=== PATIENT | female | born 1980 | race Caucasian/White ===

== ENCOUNTER 2022-01-22 10:00 | Inpatient (IN) | payer OTHER ==
[2022-01-22] MEDS ORDERED: DICYCLOMINE HCL 10 MG CAPSULE PO PRN (10:23)
[2022-01-22] MEDS ORDERED: BISMUTH SUBSALICYLATE 524 MG/30 ML PO PRN (10:23)
[2022-01-22] MEDS ORDERED: MAGNESIUM HYDROX 2400MG/30ML ORAL SUSPENSION 30 ML CUP PO PRN (10:23)
[2022-01-22] MEDS ORDERED: MAG HYDROX/AL HYDROX/SIMETH 30 ML UNIT-DOSE CUP PO PRN (10:23)
[2022-01-22] MEDS ORDERED: MAGNESIUM CITRATE 300 ML BOTTLE PO PRN (10:23)
[2022-01-22] MEDS ORDERED: IBUPROFEN 400 MG TABLET (FP) PO PRN (10:23)
[2022-01-22] MEDS ORDERED: ONDANSETRON *ODT* 4 MG TABLET SL PRN (10:23)
[2022-01-22] MEDS ORDERED: LORazepam 1 MG TABLET PO PRN (10:23)
[2022-01-22] MEDS ORDERED: BENZOCAINE/MENTHOL (CHLORASEPTIC ) LOZENGE MM PRN (10:23)
[2022-01-22] MEDS ORDERED: LOPERAMIDE HCL 2 MG CAPSULE PO PRN (10:23)
[2022-01-22] MEDS ORDERED: NALOXONE HCL (KLOXXADO) 8 MG SPRAY NS PRN (10:23)
[2022-01-22] MEDS ORDERED: ACETAMINOPHEN 325 MG TABLET (FP) PO PRN ×2 (10:23)
[2022-01-22 11:01] VITALS: BMI 36.1
[2022-01-22] MEDS ORDERED: PATIENT'S OWN MEDICATION (NON-FORMULARY) (Evolocumab [Repatha Sureclick] 140 MG/ML Pen.Inj SQ SCH (11:30)
[2022-01-22] MEDS ORDERED: PATIENT'S OWN MEDICATION (NON-FORMULARY) (Dulaglutide [Trulicity] 0.75 MG/0.5 ML Pen.Injct SQ SCH (11:30)
[2022-01-22] MEDS ORDERED: cloNIDine HCL 0.1 MG TABLET PO ONE (11:45)
[2022-01-22] MEDS: LORazepam 2 MG TABLET PO SCH ×3 (12:07→22:38)
[2022-01-22] MEDS: NICOTINE 14 MG/24 HOURS TOPICAL PATCH TD SCH (12:17)
[2022-01-22] MEDS: NICOTINE 10 MG CARTRIDGE (INHALER) IH PRN (12:27)
[2022-01-22 13:40] LABS: HEMATOCRIT 43.3 % (32.4-45.2); HEMOGLOBIN 14.3 GM/dL (10.7-15.3); MCH 30.8 pg (25.7-33.7); MCHC 32.9 g/dl (32.0-36.0); MEAN CELL VOLUME 93.4 fl (80-96); MEAN PLT VOLUME 10.1 fl (7.5-11.1); PLATELET COUNT 178 10^3/uL (134-434); RBC 4.64 M/mm3 (3.60-5.2); RDW 13.5 % (11.6-15.6); WHITE BLOOD COUNT 6.6 K/mm3 (4.0-10.0)
[2022-01-22] MEDS: hydrOXYzine PAMOATE 25 MG CAPSULE (FP) PO SCH ×3 (13:47→22:38)
[2022-01-22] MEDS: CLOPIDOGREL BISULFATE 75 MG TABLET (FP) PO SCH (13:47)
[2022-01-22] MEDS: ESCITALOPRAM OXALATE 10 MG TABLET PO SCH (13:48)
[2022-01-22 13:52] LABS: BLOOD UREA NITROGEN 7.9 mg/dL (7-18)
[2022-01-22 13:53] LABS: ALBUMIN 3.7 g/dl (3.4-5.0)
[2022-01-22 13:55] LABS: BILIRUBIN,TOTAL 0.8 mg/dL (0.2-1); CALCIUM 9.3 mg/dL (8.5-10.1); TOT PROT 8.2 g/dl (6.4-8.2)
[2022-01-22 13:56] LABS: CREATININE 0.7 mg/dL (0.55-1.3)
[2022-01-22] MEDS: METHOCARBAMOL 500 MG TABLET PO PRN (17:57)
[2022-01-22] MEDS ORDERED: MELATONIN 5 MG TABLETS PO SCH (22:00)
[2022-01-22] MEDS: ATORVASTATIN CA 80 MG TABLET (FP) PO SCH (22:38)
[2022-01-22] MEDS: MELATONIN 5 MG TABLETS PO SCH (22:38)
[2022-01-22] MEDS: THIAMINE HCL 100 MG TABLET (FP) PO SCH (22:38)
[2022-01-23] MEDS: LORazepam 2 MG TABLET PO SCH ×4 (06:35→22:01)
[2022-01-23] MEDS: LEVOTHYROXINE NA 25 MCG TABLET (FP) PO SCH (06:35)
[2022-01-23] MEDS: hydrOXYzine PAMOATE 25 MG CAPSULE (FP) PO SCH ×5 (06:36→22:01)
[2022-01-23] MEDS ORDERED: glipiZIDE 5 MG TABLET (FP) ONE (06:41)
[2022-01-23] MEDS: glipiZIDE 10 MG TABLET (FP) PO SCH (06:57)
[2022-01-23] MEDS ORDERED: ALBUTEROL SO4 HFA INHALER IH PRN (09:17)
[2022-01-23] MEDS ORDERED: ALBUTEROL SO4 0.083% IH SOL 2.5 MG/3 ML VIAL.NEB. NEB PRN (09:18)
[2022-01-23] MEDS: FERROUS SO4 325 MG TABLET (FP) PO SCH (10:35)
[2022-01-23] MEDS: CLOPIDOGREL BISULFATE 75 MG TABLET (FP) PO SCH (10:35)
[2022-01-23] MEDS: NICOTINE 14 MG/24 HOURS TOPICAL PATCH TD SCH (10:35)
[2022-01-23] MEDS: ESCITALOPRAM OXALATE 10 MG TABLET PO SCH (10:35)
[2022-01-23] MEDS: DROSPIRENONE 4 MG PO SCH (10:36)
[2022-01-23] MEDS: PRENATAL VITAMINS W/ FOLIC ACID TABLET (FP) PO SCH (10:36)
[2022-01-23] MEDS: METHOCARBAMOL 500 MG TABLET PO PRN (18:32)
[2022-01-23] MEDS: THIAMINE HCL 100 MG TABLET (FP) PO SCH (22:01)
[2022-01-23] MEDS: ATORVASTATIN CA 80 MG TABLET (FP) PO SCH (22:01)
[2022-01-23] MEDS: MELATONIN 5 MG TABLETS PO SCH (22:01)
[2022-01-24] MEDS: glipiZIDE 10 MG TABLET (FP) PO SCH (06:52)
[2022-01-24] MEDS: LORazepam 1 MG TABLET PO SCH ×4 (06:52→22:06)
[2022-01-24] MEDS: LEVOTHYROXINE NA 25 MCG TABLET (FP) PO SCH (06:52)
[2022-01-24] MEDS: hydrOXYzine PAMOATE 25 MG CAPSULE (FP) PO SCH ×5 (06:53→22:05)
[2022-01-24] MEDS: DROSPIRENONE 4 MG PO SCH (10:42)
[2022-01-24] MEDS: ESCITALOPRAM OXALATE 10 MG TABLET PO SCH (10:43)
[2022-01-24] MEDS: FERROUS SO4 325 MG TABLET (FP) PO SCH (10:43)
[2022-01-24] MEDS: NICOTINE 14 MG/24 HOURS TOPICAL PATCH TD SCH (11:19)
[2022-01-24] MEDS: PRENATAL VITAMINS W/ FOLIC ACID TABLET (FP) PO SCH (11:19)
[2022-01-24] MEDS: CLOPIDOGREL BISULFATE 75 MG TABLET (FP) PO SCH (11:19)
[2022-01-24] MEDS: NICOTINE 10 MG CARTRIDGE (INHALER) IH PRN (11:20)
[2022-01-24 14:08] LABS: SARS-CoV-2 NAA Not Detected (Not Detected)
[2022-01-24] MEDS: THIAMINE HCL 100 MG TABLET (FP) PO SCH (22:05)
[2022-01-24] MEDS: ATORVASTATIN CA 80 MG TABLET (FP) PO SCH (22:05)
[2022-01-24] MEDS: METHOCARBAMOL 500 MG TABLET PO PRN (22:06)
[2022-01-24] MEDS: MELATONIN 5 MG TABLETS PO SCH (22:06)
[2022-01-25] MEDS ORDERED: LORazepam 0.5 MG TABLET PO PRN
[2022-01-25] MEDS: LORazepam 0.5 MG TABLET PO SCH ×2 (06:36→10:18)
[2022-01-25] MEDS: glipiZIDE 10 MG TABLET (FP) PO SCH (06:36)
[2022-01-25] MEDS: hydrOXYzine PAMOATE 25 MG CAPSULE (FP) PO SCH ×2 (06:36→09:31)
[2022-01-25] MEDS: LEVOTHYROXINE NA 25 MCG TABLET (FP) PO SCH (06:54)
[2022-01-25] MEDS: CLOPIDOGREL BISULFATE 75 MG TABLET (FP) PO SCH (09:31)
[2022-01-25] MEDS: PRENATAL VITAMINS W/ FOLIC ACID TABLET (FP) PO SCH (09:31)
[2022-01-25] MEDS: FERROUS SO4 325 MG TABLET (FP) PO SCH (09:31)
[2022-01-25] MEDS: ESCITALOPRAM OXALATE 10 MG TABLET PO SCH (09:32)
[2022-01-25] MEDS: METHOCARBAMOL 500 MG TABLET PO PRN (09:32)
[2022-01-25 09:33] VITALS: BP 129/79; PULSE 78; TEMP 96.6
[2022-01-25] MEDS: DROSPIRENONE 4 MG PO SCH (09:35)
[2022-01-25] MEDS: NICOTINE 14 MG/24 HOURS TOPICAL PATCH TD SCH (09:57)
[2022-01-26] MEDS ORDERED: LORazepam 0.5 MG TABLET PO ONE (05:00)
== END 2022-01-25 11:57 | disposition home or self-care (01) | DRG 896 ==
LOC: YASAS 10:00 → Y6N 11:30
PROVIDERS: ADMIT Allergy & Immunology; ATTEND Allergy & Immunology
PROC: HZ2ZZZZ Detoxification Services for Substance Abuse Treatment (ICD-10-PCS; principal; 2022-01-22)
DX: F10.230 Alcohol dependence with withdrawal, uncomplicated (principal); U07.1 COVID-19; F17.210 Nicotine dependence, cigarettes, uncomplicated; F10.282 Alcohol dependence with alcohol-induced sleep disorder; E11.9 Type 2 diabetes mellitus without complications; Z79.84 Long term (current) use of oral hypoglycemic drugs; I25.10 Atherosclerotic heart disease of native coronary artery without angina pectoris; I10 Essential (primary) hypertension; I25.83 Coronary atherosclerosis due to lipid rich plaque; E78.1 Pure hyperglyceridemia; K76.0 Fatty (change of) liver, not elsewhere classified; Z95.5 Presence of coronary angioplasty implant and graft
CPT/HCPCS: 36415; 80053; 81025; 82962; 85027; 86780; 87811; 93005; 93010; C9803-CS; J0735; U0003; U0005